=== PATIENT | male | born 1990 | race Caucasian/White ===

== ENCOUNTER → 2017-07-27 | Emergency (ER) | payer MEDICAID ==
[~2017-07-27] VITALS: Ht 188 cm; Wt 110.0 kg
[~2017-07-27] MED LIST: AMOX-580 PO; BUPR1FIL3 SL; LISI40TA4 PO; LORazepam 2 mg/ml vial IV ONE; acetaminophen 325mg tablet PO ONE; cloNIDine 0.1 mg tablet PO ONE; lisinopril 10 MG tablet PO ONE
[2017-07-27 17:59] VITALS: BP 143/83
== END | disposition home or self-care (01) ==
LOC: ER 15:43
DX: R51 Headache (principal); I10 Essential (primary) hypertension; J32.0 Chronic maxillary sinusitis; F12.10 Cannabis abuse, uncomplicated; Z56.0 Unemployment, unspecified
CPT/HCPCS: 70450; 96374; 99284; J2060

== ENCOUNTER 2017-08-14 22:41 | Inpatient (IN) | payer MEDICAID ==
[~2017-08-14] VITALS: Ht 188 cm; Wt 109.0 kg
[~2017-08-14 22:41] MED LIST changes: -LORazepam 2 mg/ml vial IV ONE; -acetaminophen 325mg tablet PO ONE; -cloNIDine 0.1 mg tablet PO ONE; -lisinopril 10 MG tablet PO ONE
[2017-08-14] MEDS ORDERED: HYDROcodone/acetaminophen 10/325mg tab PO ONE (23:00)
[2017-08-14] MEDS ORDERED: normal saline 1000ML IV soln IVB ONE (23:40)
[2017-08-14] MEDS ORDERED: morphine 4 MG/ML inj SYRINge IV ONE (23:40)
[2017-08-15] VITALS (17 sets, daily range): BP systolic 130–162; BP diastolic 61–114
[2017-08-15 00:08] LABS: BASOPHILS # (AUTO) 0.1 X10'3 (0-0.2); EOSINOPHILS # (AUTO) 0.1 X10'3 (0-0.9); EOSINOPHILS % (AUTO) 0.8 % (0-6); HEMATOCRIT 44.6 % (42.0-52.0); HEMOGLOBIN 14.6 g/dl (14.0-17.9); LYMPHOCYTES # (AUTO) 1.3 X10'3 (1.1-4.8); MEAN CORPUSCULAR HEMOGLOBIN 28.8 PG (27.0-31.0); MEAN CORPUSCULAR HGB CONC 32.7 % (33.0-36.5); MEAN CORPUSCULAR VOLUME 88.3 FL (78-98); MONOCYTES # (AUTO) 0.6 X10'3 (0-0.9); MONOCYTES % (AUTO) 5.3 % (2-12); NEUTROPHILS # (AUTO) 9.9 X10'3 (1.8-7.7); NEUTROPHILS % (AUTO) 81.9 % (42-75); PLATELET COUNT 291 X10'3 (140-440); RED BLOOD COUNT 5.05 X10'6 (4.70-6.10); RED CELL DISTRIBUTION WIDTH 12.9 % (11.5-14.5)
[2017-08-15 00:19] LABS: PARTIAL THROMBOPLASTIN TIME 24 SECONDS (22-32); PROTHROMBIN TIME 9.9 SECONDS (9.0-12.0)
[2017-08-15 00:20] LABS: ALANINE AMINOTRANSFERASE 46 U/L (12-78); ALBUMIN 4.2 G/DL (3.4-5.0); ALBUMIN/GLOBULIN RATIO 1.1 (1.1-1.5); ALKALINE PHOSPHATASE 81 IU/L (46-116); ANION GAP 12 (8-16); ASPARTATE AMINO TRANSFERASE 28 U/L (10-37); BILIRUBIN,TOTAL 0.3 MG/DL (0.1-1.0); BLOOD UREA NITROGEN 16 MG/DL (7-18); BUN/CREATININE RATIO 12.9 (5.4-32.0); CALCIUM 8.9 MG/DL (8.5-10.1); CHLORIDE 105 MMOL/L (99-107); CREATININE 1.24 MG/DL (0.60-1.10); GLUCOSE 106 MG/DL (70-104); POTASSIUM 3.6 MMOL/L (3.5-5.1); SODIUM 142 MMOL/L (135-145); TOTAL CARBON DIOXIDE 25.5 MMOL/L (24-32); TOTAL PROTEIN 7.9 G/DL (6.4-8.2); eGFR 69 ML/MIN
[2017-08-15] MEDS ORDERED: mag hydrox/Alum hydrox/simeth 30ml oral suspension PO PRN (00:30)
[2017-08-15] MEDS ORDERED: magnesium hydroxide 30ml (MOM) UD suspension PO PRN ×2 (00:30→17:15)
[2017-08-15] MEDS ORDERED: ondansetron/PF 4mg/2ml inj IV PRN ×3 (00:30→17:15)
[2017-08-15] MEDS ORDERED: morphine 4 MG/ML inj SYRINge IV PRN (00:30)
[2017-08-15] MEDS ORDERED: acetaminophen 325mg tablet PO PRN ×2 (00:30→17:15)
[2017-08-15] MEDS ORDERED: LISI40TA4 PO (00:34)
[2017-08-15] MEDS: normal saline 1000ml 1,000 ML IV SCH ×3 (02:15→21:28)
[2017-08-15] MEDS: HYDROcodone/acetaminophen 5mg/325mg tablet PO PRN ×3 (02:37→12:32)
[2017-08-15] MEDS: LORazepam 2 mg/ml vial IV PRN ×2 (02:37→21:35)
[2017-08-15] MEDS: morphine 4 MG/ML inj SYRINge IV PRN ×5 (04:23→14:51)
[2017-08-15] MEDS: lisinopril 20mg tablet PO SCH (08:00)
[2017-08-15] MEDS ORDERED: famotidine 20mg tablet PO ONE (12:20)
[2017-08-15] MEDS ORDERED: ringers solution, lacted 1,000 ML IV SCH ×2 (12:21→16:47)
[2017-08-15] MEDS ORDERED: ceFAZolin 1000mg inj ONE ×2 (13:31→16:40)
[2017-08-15] MEDS ORDERED: ceFAZolin 1GM/D5W- ADD-VANTAGE 50 ML IV ONE (14:00)
[2017-08-15] MEDS ORDERED: midazolam 2 mg/2 ml injection ONE ×2 (14:31→15:15)
[2017-08-15] MEDS ORDERED: morphine 4 MG/ML inj SYRINge IM ONE (14:40)
[2017-08-15] MEDS ORDERED: propofol inj 20 ML IV ONE ×2 (14:43→17:00)
[2017-08-15] MEDS ORDERED: rocuronium 10mg/ml inj IV ONE ×2 (14:44→16:41)
[2017-08-15] MEDS ORDERED: fentaNYL /PF 50mcg/ml 5ml ampule ONE (14:45)
[2017-08-15] MEDS ORDERED: morphine 5 MG/ML injection IV ONE (14:45)
[2017-08-15] MEDS ORDERED: BUPIVAcaine/PF 2.5 mg/ml (0.25%) 30ml vial ONE ×2 (14:47)
[2017-08-15] MEDS ORDERED: LIDOcaine 2% (20mg/ml) 5ml vial ONE (14:49)
[2017-08-15] MEDS ORDERED: sevoflurane 250ml liquid IH ONE (15:07)
[2017-08-15] MEDS ORDERED: meperidine/PF 50mg/ml syringe ONE (15:12)
[2017-08-15] MEDS ORDERED: mineral oil/petrolatum ophthal oint ONE (16:34)
[2017-08-15] MEDS ORDERED: proCHLORperazine 10 MG/2 ml inj IV PRN (16:50)
[2017-08-15] MEDS ORDERED: meperidine/PF 50mg/ml syringe IV PRN (16:50)
[2017-08-15] MEDS ORDERED: ketorolac trometh. 30mg/ml inj. IV ONE (16:50)
[2017-08-15] MEDS ORDERED: HYDROmorphone inj. 0.5 MG/0.5 ML DISP.SYRIN IV PRN ×4 (16:50→17:15)
[2017-08-15] MEDS ORDERED: acetaminophen 1,000mg/100ml IV 100 ML IV PRN (16:50)
[2017-08-15] MEDS ORDERED: fentaNYL/PF 50MCG/1 ML 2ML syringe IV PRN ×2 (16:50)
[2017-08-15] MEDS ORDERED: dexamethasone sod phosphate 4mg/ml inj. ONE (17:01)
[2017-08-15] MEDS ORDERED: ondansetron/PF 4mg/2ml inj ONE (17:01)
[2017-08-15] MEDS ORDERED: diphenhydrAMINE 25mg capsule PO PRN ×2 (17:15)
[2017-08-15] MEDS ORDERED: bisacodyl 10mg suppository rectal RC PRN (17:15)
[2017-08-15] MEDS ORDERED: oxyCODONE IR 5mg (immed. release) tablet PO PRN (17:15)
[2017-08-15] MEDS ORDERED: labetalol 5mg/ml 20ml inj. IV ONE (17:23)
[2017-08-15] MEDS ORDERED: fentaNYL/PF 50MCG/1 ML 2ML syringe ONE (17:32)
[2017-08-15] MEDS ORDERED: ketorolac trometh. 30mg/ml inj. ONE (17:38)
[2017-08-15] MEDS ORDERED: vancomycin/NS 1 GM ADD-VANTAGE 250 ML IV SCH (20:00)
[2017-08-15] MEDS: docusate sod 100mg capsule PO SCH ×2 (20:00→20:40)
[2017-08-15] MEDS ORDERED: acetaminophen 325mg tablet PO SCH (20:00)
[2017-08-15] MEDS: potassium cl 20mEq in 1/2 NS 1,000 ML IV SCH (20:35)
[2017-08-15] MEDS: oxyCODONE IR 5mg (immed. release) tablet PO PRN (20:39)
[2017-08-15] MEDS: gabapentin 300mg capsule PO SCH (20:40)
[2017-08-15] MEDS ORDERED: sennosides 8.6mg tablet PO SCH (21:00)
[2017-08-16] MEDS: ceFAZolin 1GM/D5W- ADD-VANTAGE 50 ML IV SCH ×2 (00:52→07:50)
[2017-08-16] MEDS: oxyCODONE IR 5mg (immed. release) tablet PO PRN ×3 (01:02→09:12)
[2017-08-16] MEDS: potassium cl 20mEq in 1/2 NS 1,000 ML IV SCH ×2 (01:11→09:11)
[2017-08-16 02:00] VITALS: BP 155/95
[2017-08-16] MEDS: normal saline 1000ml 1,000 ML IV SCH (05:05)
[2017-08-16 05:26] LABS: BASOPHILS % (AUTO) 0 % (0-1); EOSINOPHILS # (AUTO) 0.2 X10'3 (0-0.9); EOSINOPHILS % (AUTO) 1.6 % (0-6); HEMATOCRIT 42.4 % (42.0-52.0); HEMOGLOBIN 14.2 g/dl (14.0-17.9); LYMPHOCYTES # (AUTO) 0.7 X10'3 (1.1-4.8); LYMPHOCYTES % (AUTO) 6.3 % (21-51); MEAN CORPUSCULAR HEMOGLOBIN 30.4 PG (27.0-31.0); MEAN CORPUSCULAR HGB CONC 33.6 % (33.0-36.5); MEAN CORPUSCULAR VOLUME 90.7 FL (78-98); MEAN PLATELET VOLUME 9.2 FL (7.4-10.4); MONOCYTES % (AUTO) 8.9 % (2-12); NEUTROPHILS # (AUTO) 9.3 X10'3 (1.8-7.7); NEUTROPHILS % (AUTO) 83.2 % (42-75); PLATELET COUNT 250 X10'3 (140-440); RED BLOOD COUNT 4.67 X10'6 (4.70-6.10); RED CELL DISTRIBUTION WIDTH 13.6 % (11.5-14.5); WHITE BLOOD COUNT 11.1 X10'3 (4.5-11.0)
[2017-08-16 05:41] LABS: ALBUMIN 3.7 G/DL (3.4-5.0); ANION GAP 8 (8-16); BLOOD UREA NITROGEN 12 MG/DL (7-18); BUN/CREATININE RATIO 10.4 (5.4-32.0); CALCIUM 9.4 MG/DL (8.5-10.1); CHLORIDE 106 MMOL/L (99-107); CREATININE 1.15 MG/DL (0.60-1.10); GLUCOSE 138 MG/DL (70-104); POTASSIUM 4.4 MMOL/L (3.5-5.1); SODIUM 144 MMOL/L (135-145); TOTAL CARBON DIOXIDE 30.5 MMOL/L (24-32); eGFR 76 ML/MIN
[2017-08-16] MEDS ORDERED: ASPI-41 PO (07:41)
[2017-08-16] MEDS ORDERED: HYDR-565 PO (07:41)
[2017-08-16] MEDS: docusate sod 100mg capsule PO SCH (07:50)
[2017-08-16] MEDS: gabapentin 300mg capsule PO SCH (07:50)
[2017-08-16] MEDS: lisinopril 20mg tablet PO SCH (07:50)
[2017-08-16] MEDS ORDERED: aspirin 325mg tablet, delayed-release (Ecotrin) PO SCH (08:00)
[2017-08-17] MEDS ORDERED: acetaminophen 325mg tablet PO PRN (17:15)
== END 2017-08-16 10:00 | disposition home or self-care (01) | DRG 313 ==
LOC: ER 22:41 → ED HOLD 08-15 00:26 → ORTHO 4S 08-15 18:54
PROVIDERS: ADMIT Family Medicine; ATTEND Orthopaedic Surgery
PROC: 3E0T3BZ Introduction of Anesthetic Agent into Peripheral Nerves and Plexi, Percutaneous Approach (ICD-10-PCS; 2017-08-15)
PROC: 0QSG04Z Reposition Right Tibia with Internal Fixation Device, Open Approach (ICD-10-PCS; principal; 2017-08-15 15:07)
DX: S82.141A Displaced bicondylar fracture of right tibia, initial encounter for closed fracture (principal); I10 Essential (primary) hypertension; F41.9 Anxiety disorder, unspecified; S93.401A Sprain of unspecified ligament of right ankle, initial encounter; F17.220 Nicotine dependence, chewing tobacco, uncomplicated; F12.90 Cannabis use, unspecified, uncomplicated; Z79.899 Other long term (current) drug therapy; W13.2XXA Fall from, out of or through roof, initial encounter; Z83.3 Family history of diabetes mellitus; Y93.89 Activity, other specified; Y92.89 Other specified places as the place of occurrence of the external cause; Y99.8 Other external cause status
CPT/HCPCS: 29505; 36415; 72100; 73560; 73590; 73610; 76001; 80048; 80053; 85025; 85610; 85730; 86885; 86900; 86901; 96374; 97116; 97161; 99285; A6255; A6449; A7000; J0690; J1100; J1885; J2001; J2060; J2175; J2250; J2270; J2405; J2704; J3010; J3370; J3490; J7030; J7120; L1832

== ENCOUNTER 2017-10-04 11:41 | Emergency (ER) | payer MEDICAID ==
[~2017-10-04] VITALS: Ht 188 cm; Wt 100.0 kg
[~2017-10-04 11:41] MED LIST changes: -AMOX-580 PO; +ASPI-41 PO; -BUPR1FIL3 SL
[2017-10-04] MEDS ORDERED: HYDR-3965 PO (13:04)
[2017-10-04 13:15] VITALS: BP 137/85
== END 2017-10-04 13:18 | disposition home or self-care (01) ==
LOC: ER 11:41
DX: S89.91XA Unspecified injury of right lower leg, initial encounter (principal); I10 Essential (primary) hypertension; F12.10 Cannabis abuse, uncomplicated; Z79.82 Long term (current) use of aspirin; Z79.899 Other long term (current) drug therapy; Z98.890 Other specified postprocedural states; Z56.0 Unemployment, unspecified; W19.XXXA Unspecified fall, initial encounter; Y93.89 Activity, other specified; Y92.89 Other specified places as the place of occurrence of the external cause; Y99.8 Other external cause status
CPT/HCPCS: 73564; 99284